=== PATIENT | female | born 1995 ===

== ENCOUNTER → 2016-06-28 | Outpatient (REF) | LOC: WSPT 06-27 10:45 → WSOH 10:44 → WSPT 11:45 | DX: Z02.1 Encounter for pre-employment examination (principal) ==

== ENCOUNTER → 2016-08-03 | Outpatient (REF) | LOC: WSOH 10:00 | DX: Z11.1 Encounter for screening for respiratory tuberculosis (principal) ==

== ENCOUNTER → 2016-08-05 | Outpatient (REF) | LOC: WSOH 11:18 | DX: Z01.89 Encounter for other specified special examinations (principal) ==